=== PATIENT | male | born 1990 | race African-American/Black ===

== ENCOUNTER 2018-03-26 23:35 | Emergency (ER) | payer OTHER ==
[2018-03-27] MEDS ORDERED: Ibuprofen 800 MG TAB ONE (00:06)
--- NOTE | 2018-03-27 09:51 | RAD ---
LEFT KNEE 4 VIEWS: Date: 03/26/18 HISTORY: Knee injury. FINDINGS: There are no signs of fracture, dislocation, or joint effusion. IMPRESSION: Negative left knee. POS: [facility]
== END 2018-03-27 00:57 | disposition home or self-care (01) ==
LOC: ERS 23:35
DX: S86.912A Strain of unspecified muscle(s) and tendon(s) at lower leg level, left leg, initial encounter (principal); Z71.6 Tobacco abuse counseling; F17.290 Nicotine dependence, other tobacco product, uncomplicated; W19.XXXA Unspecified fall, initial encounter
CPT/HCPCS: 99406

== ENCOUNTER 2018-04-02 11:31 | Emergency (ER) | payer OTHER ==
[2018-04-02] MEDS ORDERED: Ketorolac Tromethamine 30 MG/ML VIAL ONE (12:42)
--- NOTE | 2018-04-02 13:07 | RAD ---
LEFT KNEE 4 VIEWS: HISTORY: Pain. Injury. COMPARISON: 03/26/18. FINDINGS: No joint effusion. Joint spaces are preserved. No malalignment. No fracture. IMPRESSION: No fracture. No joint effusion. No significant change. POS: [facility]
== END 2018-04-02 13:17 | disposition home or self-care (01) ==
LOC: ERS 11:31
DX: M25.562 Pain in left knee (principal); F17.220 Nicotine dependence, chewing tobacco, uncomplicated; F17.290 Nicotine dependence, other tobacco product, uncomplicated
CPT/HCPCS: 96372; J1885